=== PATIENT | male | born 1940 | race Caucasian/White ===

== ENCOUNTER 2023-03-08 01:58 | Inpatient (IN) | payer OTHER ==
[~2023-03-08] VITALS: Ht 170.2 cm; Wt 105.2 kg
[2023-03-08] VITALS (7 sets, daily range): BP systolic 128–148; BP diastolic 49–76; PULSE 70–101; RESP 14–20; TEMP 97.8–98.8; O2SAT 95–99
[~2023-03-08 01:58] MED LIST: FURO80TA3 PO; METO-159 PO; NIFE60TA53 PO; SPIR100T4 PO
[2023-03-08] MEDS ORDERED: ONDANSETRON HCL 4 MG/2 ML VIAL IV PRN (04:45)
[2023-03-08] MEDS ORDERED: SODIUM CHLORIDE 0.9% 1,000 ML IV SCH (04:45)
[2023-03-08] MEDS ORDERED: ACETAMINOPHEN 325 MG TAB PO PRN (04:45)
[2023-03-08] MEDS ORDERED: MORPHINE SULFATE INJ 2 MG/ml SYRG IV PRN (04:45)
[2023-03-08] MEDS ORDERED: HYDROcodone-ACET 5/325MG TAB PO PRN (04:45)
[2023-03-08] MEDS ORDERED: hydrALAZINE HCL 10 MG TAB PO PRN (04:45)
[2023-03-08 07:23] LABS: Chloride 106 mmol/L (98-107); Potassium 4.3 mmol/L (3.5-5.1); Sodium 138 mmol/L (136-145)
[2023-03-08 07:24] LABS: Anion Gap 9 (5-15); Carbon Dioxide 23 mmol/L (20-30)
[2023-03-08 07:25] LABS: Calcium 9.5 mg/dL (8.5-10.1)
[2023-03-08 07:29] LABS: Glucose 105 mg/dL (74-106)
[2023-03-08 07:30] LABS: BUN/Creatinine Ratio 18.4 (10.0-20.0); Blood Urea Nitrogen 25 mg/dL (9-23)
[2023-03-08] MEDS ORDERED: OMEP20TA PO (14:20)
[2023-03-08] MEDS ORDERED: FINA5TAB4 PO (14:20)
[2023-03-08] MEDS ORDERED: LOSA50TA46 PO (14:20)
[2023-03-08] MEDS ORDERED: SPIR100T4 PO (14:20)
[2023-03-08] MEDS ORDERED: FURO40TA4 PO (14:20)
[2023-03-08] MEDS ORDERED: METO-159 PO (14:20)
[2023-03-08] MEDS: HEPARIN SODIUM (PORCINE) 5000 UNITS/ML 1ML VIAL SC SCH (21:44)
[2023-03-08 22:40] LABS: Urine Bacteria NONE SEEN /hpf (None Seen); Urine Blood Negative /uL (Negative); Urine Clarity Clear (Clear); Urine Color Colorless (Yellow); Urine Protein, UAD Negative (Negative); Urine Specific Gravity 1.015 (1.001-1.035); Urine Urobilinogen Normal (Negative); Urine WBC 1 /hpf (0 - 3)
[2023-03-09 05:00] VITALS: BP 118/52; PULSE 81; RESP 16; TEMP 98.4; O2SAT 99
[2023-03-09 07:00] LABS: Anion Gap 6 (5-15); Calcium 9.5 mg/dL (8.5-10.1); Carbon Dioxide 25 mmol/L (20-30); Chloride 106 mmol/L (98-107); Potassium 5.1 mmol/L (3.5-5.1); Sodium 137 mmol/L (136-145)
[2023-03-09 07:06] LABS: BUN/Creatinine Ratio 19.1 (10.0-20.0); Blood Urea Nitrogen 21 mg/dL (9-23); Glucose 100 mg/dL (74-106)
[2023-03-09 08:30] VITALS: PULSE 72; PULSE 96; RESP 18
[2023-03-09 08:55] VITALS: BP 148/70; PULSE 80; RESP 20; TEMP 97.9; O2SAT 98
[2023-03-09] MEDS: HEPARIN SODIUM (PORCINE) 5000 UNITS/ML 1ML VIAL SC SCH (10:00)
[2023-03-09 13:00] VITALS: BP 136/84; PULSE 76; RESP 18; TEMP 98.1; O2SAT 94
== END 2023-03-09 15:50 | disposition home health service (06) | DRG 684 ==
LOC: TELE-WESTW 03:48
PROVIDERS: ADMIT Internal Medicine; ATTEND Internal Medicine
DX: N17.9 Acute kidney failure, unspecified (principal); E78.5 Hyperlipidemia, unspecified; D35.00 Benign neoplasm of unspecified adrenal gland; E87.5 Hyperkalemia; I12.9 Hypertensive chronic kidney disease with stage 1 through stage 4 chronic kidney disease, or unspecified chronic kidney disease; N18.2 Chronic kidney disease, stage 2 (mild); N40.0 Benign prostatic hyperplasia without lower urinary tract symptoms; Z82.49 Family history of ischemic heart disease and other diseases of the circulatory system; Z86.718 Personal history of other venous thrombosis and embolism; Z88.1 Allergy status to other antibiotic agents
CPT/HCPCS: 36415; 74176; 80048; 81001; 97110; 97116; 97163; 97530; G0378